=== PATIENT | female | born 1945 | race Caucasian/White ===

== ENCOUNTER 2024-04-18 15:44 | Emergency (ER) | payer OTHER ==
[~2024-04-18] VITALS: Ht 170.2 cm; Wt 82.0 kg
[2024-04-18 15:48] VITALS: O2SAT 98
[2024-04-18] MEDS: HYDROCODONE/ACETAMINOPHEN 5/325MG TABLET PO ONE (17:48)
[2024-04-18] MEDS ORDERED: HYDR-4001 MT (20:40)
[2024-04-18] MEDS ORDERED: IBUP-2028 MT (20:40)
[2024-04-18 21:13] VITALS: BP 134/65; PULSE 94; RESP 17; TEMP 36.66960; O2SAT 98
== END 2024-04-18 21:15 | disposition home or self-care (01) ==
LOC: ER 15:44
DX: S42.301A Unspecified fracture of shaft of humerus, right arm, initial encounter for closed fracture (principal); W18.39XA Other fall on same level, initial encounter; Y93.89 Activity, other specified; Y92.89 Other specified places as the place of occurrence of the external cause; Y99.8 Other external cause status
CPT/HCPCS: 73030; 73060; 73080; 99284; L3670